=== PATIENT | male | born 1990 | race American Indian/Alaskan Native ===

== ENCOUNTER 2016-12-04 02:25 | Emergency (ER) | payer SELFPAY ==
[2016-12-04] MEDS ORDERED: TETRACAINE 0.5% OU ONE (02:47)
[2016-12-04] MEDS ORDERED: BSS ONE (02:51)
[2016-12-04] MEDS ORDERED: FUL-GLO OP ONE (02:51)
[2016-12-04] MEDS ORDERED: TETRACAINE 0.5% ONE (02:51)
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
--- NOTE | 2016-12-04 03:48 | Cat Scan Report ---
FINAL REPORT PROCEDURE: CT FACIAL BONES WO CON TECHNIQUE: Computerized tomography of the facial bones and soft tissues with axial and coronal sections performed from the cranial aspect of the frontal sinuses to the caudal portion of the mandible without contrast material. HISTORY: Eye injury COMPARISON: No prior studies are available for comparison. FINDINGS: There is right periorbital soft tissue swelling. There is right proptosis. The globe is intact. There is no intraorbital hematoma or mass. The optic nerve and extraocular muscles are intact. The bony orbital ibarra are intact. No fracture is seen. Nasal bone and anterior maxillary spine are intact. Mandible and temporomandibular joints are intact. Zygomatic arches are intact. There is a 2 centimeter polyp or retention cyst in the right maxillary sinus. There are no air-fluid levels in the paranasal sinuses. IMPRESSION: Right periorbital soft tissue swelling. Right proptosis. No acute bony abnormality is seen.
[2016-12-04 03:53] LABS: Basophils % (Auto) 0.8 % (0.0-1.8); Eosinophils % (Auto) 0.5 % (0.0-4.3); Hemoglobin 14.2 gm/dl (11.8-15.2); Mean Corpuscular HGB Conc 34 % (32-34); Mean Corpuscular Hemoglobin 28 pg (28-32); Mean Corpuscular Volume 82 fl (84-94); Platelet Count 456 K/mm3 (140-440); Red Blood Count 5.14 M/mm3 (3.65-5.03); Red Cell Distribution Width 14.8 % (13.2-15.2); White Blood Count 8.5 K/mm3 (4.5-11.0)
[2016-12-04 04:04] LABS: INR 1.18 (0.87-1.13); Partial Thromboplastin Time 34.3 Sec. (24.2-36.6)
[2016-12-04 04:09] LABS: Anion Gap 20 mmol/L; BUN/Creatinine Ratio 9; Blood Urea Nitrogen 8 mg/dL (9-20); Calcium 8.8 mg/dL (8.4-10.2); Carbon Dioxide 23 mmol/L (22-30); Chloride 105.9 mmol/L (98-107); Glucose 111 mg/dL (75-100); Potassium 3.6 mmol/L (3.6-5.0); Sodium 145 mmol/L (137-145)
[2016-12-04 05:08] VITALS: BP 148/96
== END 2016-12-04 05:27 | disposition other institution (70) ==
LOC: ED 02:25
DX: H05.20 Unspecified exophthalmos (principal); S05.91XA Unspecified injury of right eye and orbit, initial encounter; Y08.89XA Assault by other specified means, initial encounter; Y93.9 Activity, unspecified; Y92.9 Unspecified place or not applicable; Y99.9 Unspecified external cause status
CPT/HCPCS: 36415; 70450; 70486; 80048; 85025; 85610; 85730; 99291; G0480; 80320

== ENCOUNTER 2018-06-22 04:21 | Emergency (ER) | payer OTHER ==
[2018-06-22] MEDS ORDERED: CATAPRES ONE (04:35)
[2018-06-22] MEDS ORDERED: CATAPRES PO ONE (04:38)
--- NOTE | 2018-06-22 05:00 | Emergency Department Report ---
ED General Adult HPI - General Chief complaint: High BP Stated complaint: HIGH BP Time Seen by Provider: 06/22/18 04:30 Source: patient Mode of arrival: Ambulatory Limitations: No Limitations - History of Present Illness Initial comments: Patient is a 28 yo AA male with a h/o HTN and who takes medications presents to the ED with elevated blood pressure for the last 2 days after he ran out of his blood pressure 2 days ago. Patient denies dyspnea, nausea, vomiting, diarrhea, dizziness, vision changes, abdominal pain, neck pain, chest pain or numbness, tingling or weakness of upper extremities bilaterally. MD Complaint: Elevated blood pressure, ran out of blood pressure medication -: Sudden, days(s) (2) Location: head Radiation: non-radiation Severity scale (0 -10): 3 Quality: dull Consistency: constant Improves with: medication Worsens with: none Associated Symptoms: denies other symptoms, malaise. denies: confusion, chest pain, diaphoresis, fever/chills, headaches, loss of appetite, nausea/vomiting, seizure, shortness of breath Treatments Prior to Arrival: none - Related Data Previous Rx's Medication Instructions Recorded Last Taken Type Losartan/Hydrochlorothiazide 1 each PO DAILY 30 Days #30 tablet 06/22/18 Unknown Rx [Hyzaar 100-12.5 Tablet] amLODIPine [Norvasc] 10 mg PO DAILY 30 Days #30 tablet 06/22/18 Unknown Rx Allergies Allergy/AdvReac Type Severity Reaction Status Date / Time No Known Allergies Allergy Verified 12/04/16 02:28 ED Review of Systems ROS: Stated complaint: HIGH BP Other details as noted in HPI Comment: All other systems reviewed and negative Constitutional: no symptoms reported, malaise. denies: see HPI, chills Eyes: as per HPI. denies: eye pain, eye discharge, vision change ENT: as per HPI. denies: dental pain, hearing loss Respiratory: no symptoms reported. denies: cough, orthopnea, shortness of breath, SOB with exertion, wheezing Cardiovascular: as per HPI. denies: chest pain, palpitations, syncope Endocrine: no symptoms reported, see HPI. denies: excessive sweating, flushing Gastrointestinal: as per HPI. denies: abdominal pain, nausea, diarrhea, hematochezia Genitourinary: as per HPI. denies: urgency, frequency Musculoskeletal: as per HPI Skin: as per HPI Neurological: as per HPI. denies: headache, numbness, paresthesias, vertigo Psychiatric: as per HPI. denies: auditory hallucinations, visual hallucinations Hematological/Lymphatic: as per HPI ED Past Medical Hx - Past Medical History Previous Medical History?: Yes Hx Hypertension: Yes - Surgical History Past Surgical History?: No - Social History Smoking Status: Current Every Day Smoker Substance Use Type: Alcohol - Medications Home Medications: Home Medications Medication Instructions Recorded Confirmed Last Taken Type Losartan/Hydrochlorothiazide 1 each PO DAILY 30 Days #30 tablet 06/22/18 Unknown Rx [Hyzaar 100-12.5 Tablet] amLODIPine [Norvasc] 10 mg PO DAILY 30 Days #30 tablet 06/22/18 Unknown Rx ED Physical Exam - General Limitations: No Limitations General appearance: alert, in no apparent distress - Head Head exam: Present: atraumatic, normocephalic, normal inspection - Eye Eye exam: Present: normal appearance, PERRL, EOMI Pupils: Present: normal accommodation - ENT ENT exam: Present: normal exam, normal orophraynx, mucous membranes moist, TM's normal bilaterally, normal external ear exam - Neck Neck exam: Present: normal inspection - Respiratory Respiratory exam: Present: normal lung sounds bilaterally. Absent: respiratory distress, wheezes, rhonchi, chest wall tenderness - Cardiovascular Cardiovascular Exam: Present: regular rate, normal rhythm, normal heart sounds - GI/Abdominal GI/Abdominal exam: Present: soft, normal bowel sounds - Rectal Rectal exam: Present: deferred - Extremities Exam Extremities exam: Present: normal inspection, full ROM, normal capillary refill - Back Exam Back exam: Present: normal inspection, full ROM - Neurological Exam Neurological exam: Present: alert, oriented X3, CN II-XII intact, normal gait, reflexes normal - Psychiatric Psychiatric exam: Present: normal affect - Skin Skin exam: Present: warm ED Course Vital Signs 06/22/18 06/22/18 04:26 04:39 Temperature 97.7 F Pulse Rate 97 H 97 H Respiratory 20 Rate Blood Pressure 191/111 191/111 O2 Sat by Pulse 100 Oximetry ED Medical Decision Making - Medical Decision Making The patient is alert and oriented 3 and is not in any distress but hypertensive in triage. Patient was treated in the ED with Clonidine, and observed for over 1 hour. Since the patient did not complain of any other symptoms like headache, chest pain, shortness of breath, lightheadedness, dizziness, change in vision, and did not exhibit any neurological or cardiac signs or symptoms patient was observed in the ED for 1 hour after being given clonidine for his uncontrolled hypertension. On evaluation, patient's blood pressure has normalized with medications and patient resting comfortably and in no acute distress. Patient discharged home with his regular antihypertensives and advised to follow-up with his primary care physician for reevaluation in 7-10 days. Patient advised return to the ED immediately if symptoms get worse. - Differential Diagnosis Hypertensive Urgency, Headache, Lightheadedness Critical care attestation.: If time is entered above; I have spent that time in minutes in the direct care of this critically ill patient, excluding procedure time. ED Disposition Clinical Impression: Uncontrolled stage 2 hypertension, Medication refill Disposition: TO HOME OR SELFCARE Is pt being admited?: No Does the pt Need Aspirin: No Condition: Stable Instructions: Hypertension (ED) Additional Instructions: Take medications daily for hypertension, follow-up with your primary care physic wilma in 7-10 days for reevaluation. Return to the ED immediately if symptoms get worse. Prescriptions: Losartan/Hydrochlorothiazide [Hyzaar 100-12.5 Tablet] 1 each PO DAILY 30 Days #30 tablet amLODIPine [Norvasc] 10 mg PO DAILY 30 Days #30 tablet Referrals: YANNICK BERNAL MD [Primary Care Provider] - 3-5 Days Time of Disposition: 05:47 Print Language: EMIRATI
[2018-06-22 05:44] VITALS: BP 140/86
== END 2018-06-22 05:56 | disposition home or self-care (01) ==
LOC: ED 04:21
DX: I10 Essential (primary) hypertension (principal); F17.200 Nicotine dependence, unspecified, uncomplicated; Z76.0 Encounter for issue of repeat prescription
CPT/HCPCS: 99282

== ENCOUNTER 2020-05-15 11:00 | Outpatient (CLI) | payer BC | END 2020-05-15 11:01 | disposition home or self-care (01) | LOC: SLR 11:00 | PROVIDERS: ATTEND Internal Medicine | DX: G47.33 Obstructive sleep apnea (adult) (pediatric) (principal); I10 Essential (primary) hypertension | CPT/HCPCS: G0399 ==

== ENCOUNTER 2020-05-21 11:00 | Outpatient (CLI) | payer BC | END 2020-05-21 11:01 | disposition home or self-care (01) | LOC: SLR 11:00 | PROVIDERS: ATTEND Internal Medicine | DX: G47.33 Obstructive sleep apnea (adult) (pediatric) (principal) | CPT/HCPCS: 95811 ==

== ENCOUNTER 2021-06-15 11:09 | Outpatient (CLI) | payer BC ==
[2021-06-15 11:51] LABS: Basophils # (Auto) 0.1 K/mm3 (0.0-0.1); Basophils % (Auto) 1.2 % (0.0-1.8); Eosinophils # (Auto) 0.2 K/mm3 (0.0-0.4); Eosinophils % (Auto) 3.1 % (0.0-4.3); Hematocrit 46.1 % (35.5-45.6); Hemoglobin 14.8 gm/dl (11.8-15.2); Lymphocytes # (Auto) 1.9 K/mm3 (1.2-5.4); Lymphocytes % (Auto) 33.5 % (13.4-35.0); Mean Corpuscular HGB Conc 32 % (32-34); Mean Corpuscular Volume 83 fl (84-94); Monocytes # (Auto) 0.6 K/mm3 (0.0-0.8); Monocytes % (Auto) 10.3 % (0.0-7.3); Platelet Count 418 K/mm3 (140-440); Red Blood Count 5.53 M/mm3 (3.65-5.03); Red Cell Distribution Width 15.4 % (13.2-15.2)
[2021-06-15 12:08] LABS: Alanine Aminotransferase 27 units/L (7-56); Albumin 4.4 g/dL (3.9-5); BUN/Creatinine Ratio 13; Blood Urea Nitrogen 12 mg/dL (9-20); HDL Cholesterol 42 mg/dL (40-59); Hemolysis Index 3; LDL Cholesterol,Direct 183 mg/dL (50-130)
[2021-06-18 14:51] LABS: Vitamin D, 25-OH, D2 <4 ng/mL
== END 2021-06-15 11:10 | disposition home or self-care (01) ==
LOC: LAB 11:09
PROVIDERS: ATTEND Internal Medicine
DX: Z00.00 Encounter for general adult medical examination without abnormal findings (principal); E66.01 Morbid (severe) obesity due to excess calories; E78.5 Hyperlipidemia, unspecified; E55.9 Vitamin D deficiency, unspecified; I10 Essential (primary) hypertension; R79.89 Other specified abnormal findings of blood chemistry; R53.83 Other fatigue
CPT/HCPCS: 36415; 80053; 80061; 82306; 84443; 85025